=== PATIENT | female | born 1970 | race Caucasian/White ===

== ENCOUNTER 2019-09-19 13:59 | Inpatient (IN) ==
[~2019-09-19 13:59] MED LIST: RAPID SEQUENCE INDUCTION BAG ONE
[2019-09-19] MEDS ORDERED: ALBUT/IPRATROP 3MG/0.5MG NEB 3 ML VIAL NEB ONE (14:06)
--- NOTE | 2019-09-19 14:16 | XRay Report ---
XR chest 1V portable HISTORY: Respiratory failure. COMPARISON: Chest 09/12/2018. FINDINGS: The lungs are clear. Cardiac silhouette is normal in size. No pleural effusions. No pneumot horax. IMPRESSION: No acute process. ACT 112: Negative or not required by law. Electronically signed by: Cesar Downs M.D. 09/19/2019 2:15 PM
[2019-09-19 14:29] LABS: Hematocrit (blood only) 44.6 % (37-47); Hemoglobin 14.6 g/dL (12.0-16.0); Mean Corpuscular Hemoglobin 31.1 pg (25-34); Mean Corpuscular Hgb Conc 32.7 g/dL (32-36); Mean Corpuscular Volume 94.9 fL (80-100); Mean Platelet Volume 11.1 fL (7.4-10.4); Platelet Count 341 K/uL (130-400); RDW Coefficient of Variation 13.3 % (11.5-14.5); RDW Standard Deviation 46.1 fL (36.4-46.3)
[2019-09-19 14:46] LABS: Alanine Aminotransferase 24 U/L (12-78); Albumin Level 3.5 gm/dl (3.4-5.0); Aspartate Aminotransferase 18 U/L (15-37); BUN Creatinine Ratio 15.1 (10-20); Basophils # (auto) 0.06 K/uL (0-0.2); Basophils % (auto) 0.4 %; Blood Urea Nitrogen 13 mg/dl (7-18); Calcium 9.2 mg/dl (8.5-10.1); Carbon Dioxide 25 mmol/L (21-32); Chloride 108 mmol/L (98-107); Creatinine Clr Calc Pharmacy 81.9 ml/min; Eosinophils # (auto) 0.99 K/uL (0-0.5); Eosinophils % (auto) 6.6 %; Est GFR (Non-African American) 79.3; Glucose 221 mg/dl (70-99); Immature Granulocytes # (auto) 0.09 K/uL (0.00-0.02); Immature Granulocytes % (auto) 0.6 %; Lymphocytes # (auto) 7.29 K/uL (1.2-3.4); Lymphocytes % (auto) 48.9 %; Monocytes # (auto) 0.84 K/uL (0.11-0.59); Monocytes % (auto) 5.6 %; Neutrophils # (auto) 5.63 K/uL (1.4-6.5); Neutrophils % (auto) 37.9 %; Potassium 3.5 mmol/L (3.5-5.1); Sodium 139 mmol/L (136-145)
[2019-09-19 14:50] LABS: Albumin Globulin Ratio 0.8 (0.9-2); Alkaline Phosphatase 98 U/L (45-117); Bilirubin,Total 0.1 mg/dl (0.2-1); Globulin 4.4 gm/dl (2.5-4.0); Total Protein 7.9 gm/dl (6.4-8.2); Troponin I < 0.015 ng/ml (0-0.045)
[2019-09-19] MEDS ORDERED: OPTIRAY 320 125ml IV PRN (14:54)
[2019-09-19 14:55] LABS: Partial Thromboplastin Ratio 0.8; Partial Thromboplastin Time 22.8 Seconds (21.0-31.0)
[2019-09-19 14:56] LABS: Pregnancy Test, Serum Negative (Negative)
--- NOTE | 2019-09-19 15:05 | CT Scan Report ---
CT angio chest PE protocol CT DOSE: 590.46 mGy.cm HISTORY: Dyspnea PE sob TECHNIQUE: Multiaxial CT images of the chest were performed following the intravenous administration of contrast to evaluate the pulmonary arteries. Maximal intensity projection images were also obtaine d. A dose lowering technique was utilized adhering to the principles of ALARA. COMPARISON STUDY: None. FINDINGS: There is a normal caliber thoracic aorta with no evidence for dissection. There is no evide nce for pulmonary embolus. No pleural effusions. No pneumothorax. The liver and spleen are unremarkab le. No mediastinal or hilar lymphadenopathy. The central airways are patent. The lungs are clear. IMPRESSION: No evidence for pulmonary embolus. The lungs are clear. ACT 112: Negative or not required by law. The above report was generated using voice recognition software. It may contain grammatical, syntax or spelling errors. Electronically signed by: Camron Cohen M.D. 09/19/2019 3:04 PM
[2019-09-19 15:10] LABS: Influenza A virus by PCR Neg for Influ A (Neg); Influenza B virus by PCR Neg for Influ B (Neg)
[2019-09-19] MEDS ORDERED: GLUCAGON FOR INJ 1 MG VIAL SQ PRN (17:26)
[2019-09-19] MEDS ORDERED: DEXTROSE 50% 50 ML SYRINGE IV PRN (17:26)
[2019-09-19] MEDS ORDERED: GLUCOSE 40% GEL 15 GM TUBE PO PRN (17:26)
[2019-09-19] MEDS ORDERED: CARBOHYDRATES FOR HYPOGLYCEMIA PO PRN (17:26)
[2019-09-19] MEDS ORDERED: ALBUTEROL 0.5% NEB SOLN 2.5 MG/0.5 ML VIAL NEB PRN (17:26)
[2019-09-19] MEDS ORDERED: GLUCOSE 10 TABS/TUBE PO PRN (17:26)
[2019-09-19 17:34] LABS: Appearance Urine Clear (Clear); Bacteria Urine Automated 2+ (Negative); Bilirubin Urine Negative (Negative); Blood Urine 1+ (Negative); Color Urine Yellow; Epithelial Cell Urine Auto 20-30 /lpf (0-5); Glucose Urine UA Negative (Negative); Ketones Urine Negative (Negative); Leukocyte Esterase Urine Negative (Negative); Nitrite Urine Negative (Negative); Protein Urine Negative (Negative); Specific Gravity Urine > 1.045 (1.000-1.030); Urobilinogen Urine Negative (Negative)
[2019-09-19 17:52] LABS: RBC Urine Automated 0-4 /hpf (0-4)
[2019-09-19] MEDS ORDERED: INFLUENZA ADMINISTRATION CHARGE ONE (17:57)
[2019-09-19] MEDS ORDERED: INFLUENZA VIRUS QUAD VACCINE 0.5 ML SYR IM ONE (17:57)
--- NOTE | 2019-09-19 18:20 | Electrocardiogram Report ---
Test Reason : Blood Pressure : / mmHG Vent. Rate : 125 BPM Atrial Rate : 125 BPM P-R Int : 166 ms QRS Dur : 074 ms QT Int : 296 ms P-R-T Axes : 071 046 060 degrees QTc Int : 427 ms Poor data quality, interpretation may be adversely affected Sinus tachycardia Low voltage QRS Abnormal ECG No previous ECGs available Confirmed by Jeff Márquez ([id number]) on 09/19/2019 6:20:36 PM Referred By: REFERRED SELF Confirmed By:Dirk Márquez
--- NOTE | 2019-09-19 19:04 | Emergency Department Note ---
Entered by Haydee Salmon acting as a scribe for History of Present Illness General Chief complaint: Respiratory Arrest Time Seen by Provider: 09/19/19 14:04 Source: patient and EMS History of Present Illness Onset (ago): minute(s) (just prior to arrival) Location: head (general) Pain Consistency: + other (episode) Quality: + other (respiratory arrest) Associated symptoms: + cough and + shortness of breath Treatments prior to arrival: other (nebulizer, NAG, Solu-Medrol) The patient is a 49 year old female who presents to the Emergency Room with complaints of an episode of respiratory arrest that occurred just prior to arrival. EMS states the patient was working at a [employer] when she began severely coughing and became unable to breathe. EMS reports the patient became unresponsive and turned perez. EMS notes the patient was given 3 nebulizer treatments, 2g of NAG, and Solu-Medrol. They note the patient has been sick for the past 3 months with a respiratory illness. They state the patient smokes 2-3 cigarettes per day. They note she is allergic to penicillin. The patient reports she has had worsening shortness of breath for some time. Home Medications Home Medications Medication Instructions Recorded Confirmed Type ascorbic acid (vitamin C) [Vitamin 500 mg PO QAM 09/12/18 09/19/19 History C] calcium carbonate [Calcium 600] 600 mg PO QAM 09/12/18 09/19/19 History cholecalciferol (vitamin D3) 1,000 unit PO QAM 09/12/18 09/19/19 History [Vitamin D3] ibuprofen 800 mg PO QID PRN 09/12/18 09/19/19 History Allergies Allergy/AdvReac Type Severity Reaction Status Date / Time Penicillins Allergy . Verified 09/19/19 15:16 Past Med/Surg History Medical History Urinary tract infection (Acute) Surgical History H/O: hysterectomy Family History Other No pertinent family history Social History Preferred Language: Ivorian Communication Ability: Effective Visual Impairment: No Limitations Hearing Ability: Normal Bait Packer Required: No Beliefs That Will Affect Care: None marital status: Current Living Situation: Spouse and Family current occupational status: employed Other Information That Helps Us Care for You: No Feels Safe at Home: Yes Safety Concerns: Feels Safe At This Time Smoking Status: Former smoker Tobacco Type: cigarettes ; Do You Dip or Chew Tobacco: No ; Second Hand Exposure: No ; Tobacco Cessation Education Requested by Patient: No Hx Alcohol Use: Yes Alcohol type: other Hx Substance Use: No Review of Systems See HPI for pertinent positives & negatives. and A total of 10 systems reviewed and were otherwise negative Physical Exam Vital Signs Vital Signs - 24 hr 09/19/19 14:05 09/19/19 14:09 09/19/19 14:16 Pulse Rate 128 H 127 H 121 H Pulse Rate from SpO2 Sensor 121 H Respiratory Rate 22 39 H 32 H Respiratory Effort / Characteristics Spontaneous Labored Short of Breath Accessory Muscle Use Labored Respiratory Depth Normal Respiratory Pattern Tachypnea Blood Pressure 144/96 H 126/84 Blood Pressure Mean 112 93 Blood Pressure Position Sitting Pulse Oximetry 100 99 100 Oxygen Delivery Method BiPAP Non-rebreather BiPAP Oxygen Flow Rate 15 Fraction of Inspired Oxygen 50 50 Sepsis Recent Fever Within 48 Hours No Sepsis New/Unexplained Change in Mental Status No Sepsis Action Taken by Nursing No Action Required 09/19/19 14:18 09/19/19 14:19 09/19/19 14:29 Pulse Rate 120 H Pulse Rate from SpO2 Sensor 121 H Respiratory Rate 28 H Respiratory Effort / Characteristics Respiratory Depth Respiratory Pattern Blood Pressure 121/81 Blood Pressure Mean 90 Blood Pressure Position Pulse Oximetry 100 100 Oxygen Delivery Method BiPAP BiPAP BiPAP Oxygen Flow Rate Fraction of Inspired Oxygen 50 50 Sepsis Recent Fever Within 48 Hours Sepsis New/Unexplained Change in Mental Status Sepsis Action Taken by Nursing 09/19/19 14:30 09/19/19 14:45 09/19/19 15:03 Pulse Rate 120 H 120 H 127 H Pulse Rate from SpO2 Sensor 120 H 120 H 127 H Respiratory Rate 28 H 28 H 28 H Respiratory Effort / Characteristics Respiratory Depth Respiratory Pattern Blood Pressure 117/85 102/74 106/64 Blood Pressure Mean 95 80 70 Blood Pressure Position Pulse Oximetry 100 100 100 Oxygen Delivery Method BiPAP BiPAP Oxygen Flow Rate Fraction of Inspired Oxygen Sepsis Recent Fever Within 48 Hours Sepsis New/Unexplained Change in Mental Status Sepsis Action Taken by Nursing 09/19/19 15:15 09/19/19 15:20 09/19/19 15:21 Pulse Rate 126 H 118 H 118 H Pulse Rate from SpO2 Sensor 126 H 118 H 118 H Respiratory Rate 28 H Respiratory Effort / Characteristics Respiratory Depth Respiratory Pattern Blood Pressure 102/81 Blood Pressure Mean 94 Blood Pressure Position Pulse Oximetry 100 100 100 Oxygen Delivery Method Oxygen Flow Rate Fraction of Inspired Oxygen Sepsis Recent Fever Within 48 Hours Sepsis New/Unexplained Change in Mental Status Sepsis Action Taken by Nursing 09/19/19 15:30 09/19/19 15:45 09/19/19 16:00 Pulse Rate 122 H 117 H 121 H Pulse Rate from SpO2 Sensor 122 H 117 H 122 H Respiratory Rate 29 H Respiratory Effort / Characteristics Respiratory Depth Respiratory Pattern Blood Pressure 103/74 101/78 107/76 Blood Pressure Mean 79 84 82 Blood Pressure Position Pulse Oximetry 100 100 100 Oxygen Delivery Method BiPAP Oxygen Flow Rate Fraction of Inspired Oxygen Sepsis Recent Fever Within 48 Hours Sepsis New/Unexplained Change in Mental Status Sepsis Action Taken by Nursing 09/19/19 16:10 Pulse Rate 117 H Pulse Rate from SpO2 Sensor 116 H Respiratory Rate Respiratory Effort / Characteristics Respiratory Depth Respiratory Pattern Blood Pressure Blood Pressure Mean Blood Pressure Position Pulse Oximetry 100 Oxygen Delivery Method Oxygen Flow Rate Fraction of Inspired Oxygen Sepsis Recent Fever Within 48 Hours Sepsis New/Unexplained Change in Mental Status Sepsis Action Taken by Nursing GENERAL: Awake, alert, fatigued-appearing, in respiratory distress HENT: Normocephalic, atraumatic. EYES: Normal conjunctiva. Sclera non-icteric. NECK: Supple. No nuchal rigidity. RESPIRATORY: Coarse breath sounds with wheezing throughout. Increased work of breathing. Tachypneic. CARDIAC: Tachycardic rate. Normal rhythm. Extremities warm and well perfused. GI: Soft, non-distended. No tenderness to palpation MUSCULOSKELETAL: Atraumatic. Chest examination reveals no tenderness. LOWER EXTREMITIES: Calves are equal size bilaterally and non-tender. Trace pedal edema. NEURO: No sensory or motor deficits noted. No facial droop. SKIN: Warm and dry. No jaundice noted. Course Course 1400: Past medical records reviewed. The patient was evaluated in room A01. A complete history and physical exam was performed. 1530: Upon reevaluation, I discussed findings and results with the patient and her family. They verbalized agreement of the treatment plan. I spoke with Dr. Moreno of the [facility] Hospitalist Service. The patient will be evaluated for further management and care. Administered Medications Ioversol (Optiray 320 125ml) 118 ml IV ONCE PRN PRN Reason: Interaction Checking Stop: 09/23/19 14:53 Last Admin: 09/19/19 14:54 Dose: 118 ml Documented by: [id number] Discontinued Medications Albuterol (Duoneb) 12 ml NEB ONE ONE Stop: 09/19/19 14:07 Last Admin: 09/19/19 15:20 Dose: 12 ml Documented by: [id number] Miscellaneous () Confirm Administered Dose 1 ea .ROUTE .STK-MED ONE Stop: 09/19/19 13:57 Last Admin: 09/19/19 15:20 Dose: Not Given Documented by: [id number] Critical Care Time Critical Care Time: Yes Total Critical Care Time: 55 I have personally spent 55 minutes of critical care time in the direct management of this patient. This includes bedside care, interpretation of diagnostic studies, and testing, discussion with consultants, patient, and family members, and other required patient management activities. This 55 minutes is in excess of all separately billable procedures. Medical Decision Making Differential Diagnosis Differential diagnoses includes but is not limited to pneumonia, bronchitis, COPD/Asthma exacerbation, pneumothorax, pulmonary embolism, congestive heart failure, acute coronary syndrome Medical Records Attestation: I reviewed the patient's medical records. Home Medications Current Medication List: was personally reviewed by me Laboratory Data Attestation: I reviewed the patient's lab results. Result diagrams: 09/19/19 13:50 09/19/19 13:50 Lab Results 09/19/19 09/19/19 09/19/19 Range/Units 13:50 13:50 13:50 WBC 14.90 H (4.8-10.8) K/uL RBC 4.70 (4.2-5.4) M/uL Hgb 14.6 (12.0-16.0) g/dL Hct 44.6 (37-47) % MCV 94.9 (80-100) fL MCH 31.1 (25-34) pg MCHC 32.7 (32-36) g/dL RDW Std Deviation 46.1 (36.4-46.3) fL RDW Coeff of Niya 13.3 (11.5-14.5) % Plt Count 341 (130-400) K/uL MPV 11.1 H (7.4-10.4) fL Immature Gran % (Auto) 0.6 % Neut % (Auto) 37.9 % Lymph % (Auto) 48.9 % [place] % (Auto) 5.6 % Eos % (Auto) 6.6 % Baso % (Auto) 0.4 % Immature Gran # (Auto) 0.09 H (0.00-0.02) K/uL Neut # (Auto) 5.63 (1.4-6.5) K/uL Lymph # (Auto) 7.29 H (1.2-3.4) K/uL [place] # (Auto) 0.84 H (0.11-0.59) K/uL Eos # (Auto) 0.99 H (0-0.5) K/uL Baso # (Auto) 0.06 (0-0.2) K/uL PT Cancelled INR Cancelled APTT Cancelled PTT Ratio Cancelled Sodium 139 (136-145) mmol/L Potassium 3.5 (3.5-5.1) mmol/L Chloride 108 H (98-107) mmol/L Carbon Dioxide 25 (21-32) mmol/L Anion Gap 6.0 (3-11) BUN 13 (7-18) mg/dl Creatinine 0.85 (0.6-1.2) mg/dl POC Creatinine (0.6-1.3) mg/dl Est Cr Clr Drug Dosing 81.9 ml/min Est GFR ( Amer) 92.0 Est GFR (Non-Af Amer) 79.3 BUN/Creatinine Ratio 15.1 (10-20) Glucose 221 H (70-99) mg/dl Lactate (0.4-2.0) mmol/L Calcium 9.2 (8.5-10.1) mg/dl Phosphorus (2.5-4.9) mg/dl Magnesium 2.0 (1.8-2.4) mg/dl Total Bilirubin 0.1 L (0.2-1) mg/dl AST 18 (15-37) U/L ALT 24 (12-78) U/L Alkaline Phosphatase 98 (45-117) U/L Troponin I < 0.015 (0-0.045) ng/ml Total Protein 7.9 (6.4-8.2) gm/dl Albumin 3.5 (3.4-5.0) gm/dl Globulin 4.4 H (2.5-4.0) gm/dl Albumin/Globulin Ratio 0.8 L (0.9-2) Procalcitonin (0-0.5) ng/ml HCG, Qual (Negative) Influenza Type A (PCR) (Neg) Influenza Type B (PCR) (Neg) 09/19/19 09/19/19 09/19/19 Range/Units 13:50 13:50 13:50 WBC (4.8-10.8) K/uL RBC (4.2-5.4) M/uL Hgb (12.0-16.0) g/dL Hct (37-47) % MCV (80-100) fL MCH (25-34) pg MCHC (32-36) g/dL RDW Std Deviation (36.4-46.3) fL RDW Coeff of Niya (11.5-14.5) % Plt Count (130-400) K/uL MPV (7.4-10.4) fL Immature Gran % (Auto) % Neut % (Auto) % Lymph % (Auto) % [place] % (Auto) % Eos % (Auto) % Baso % (Auto) % Immature Gran # (Auto) (0.00-0.02) K/uL Neut # (Auto) (1.4-6.5) K/uL Lymph # (Auto) (1.2-3.4) K/uL [place] # (Auto) (0.11-0.59) K/uL Eos # (Auto) (0-0.5) K/uL Baso # (Auto) (0-0.2) K/uL PT INR APTT PTT Ratio Sodium (136-145) mmol/L Potassium (3.5-5.1) mmol/L Chloride (98-107) mmol/L Carbon Dioxide (21-32) mmol/L Anion Gap (3-11) BUN (7-18) mg/dl Creatinine (0.6-1.2) mg/dl POC Creatinine (0.6-1.3) mg/dl Est Cr Clr Drug Dosing ml/min Est GFR ( Amer) Est GFR (Non-Af Amer) BUN/Creatinine Ratio (10-20) Glucose (70-99) mg/dl Lactate (0.4-2.0) mmol/L Calcium (8.5-10.1) mg/dl Phosphorus 6.7 H (2.5-4.9) mg/dl Magnesium (1.8-2.4) mg/dl Total Bilirubin (0.2-1) mg/dl AST (15-37) U/L ALT (12-78) U/L Alkaline Phosphatase (45-117) U/L Troponin I (0-0.045) ng/ml Total Protein (6.4-8.2) gm/dl Albumin (3.4-5.0) gm/dl Globulin (2.5-4.0) gm/dl Albumin/Globulin Ratio (0.9-2) Procalcitonin < 0.05 (0-0.5) ng/ml HCG, Qual Negative (Negative) Influenza Type A (PCR) (Neg) Influenza Type B (PCR) (Neg) 09/19/19 09/19/19 09/19/19 Range/Units 14:21 14:30 14:35 WBC (4.8-10.8) K/uL RBC (4.2-5.4) M/uL Hgb (12.0-16.0) g/dL Hct (37-47) % MCV (80-100) fL MCH (25-34) pg MCHC (32-36) g/dL RDW Std Deviation (36.4-46.3) fL RDW Coeff of Niya (11.5-14.5) % Plt Count (130-400) K/uL MPV (7.4-10.4) fL Immature Gran % (Auto) % Neut % (Auto) % Lymph % (Auto) % [place] % (Auto) % Eos % (Auto) % Baso % (Auto) % Immature Gran # (Auto) (0.00-0.02) K/uL Neut # (Auto) (1.4-6.5) K/uL Lymph # (Auto) (1.2-3.4) K/uL [place] # (Auto) (0.11-0.59) K/uL Eos # (Auto) (0-0.5) K/uL Baso # (Auto) (0-0.2) K/uL PT 10.0 INR 1.0 APTT 22.8 PTT Ratio 0.8 Sodium (136-145) mmol/L Potassium (3.5-5.1) mmol/L Chloride (98-107) mmol/L Carbon Dioxide (21-32) mmol/L Anion Gap (3-11) BUN (7-18) mg/dl Creatinine (0.6-1.2) mg/dl POC Creatinine (0.6-1.3) mg/dl Est Cr Clr Drug Dosing ml/min Est GFR ( Amer) Est GFR (Non-Af Amer) BUN/Creatinine Ratio (10-20) Glucose (70-99) mg/dl Lactate 1.6 (0.4-2.0) mmol/L Calcium (8.5-10.1) mg/dl Phosphorus (2.5-4.9) mg/dl Magnesium (1.8-2.4) mg/dl Total Bilirubin (0.2-1) mg/dl AST (15-37) U/L ALT (12-78) U/L Alkaline Phosphatase (45-117) U/L Troponin I (0-0.045) ng/ml Total Protein (6.4-8.2) gm/dl Albumin (3.4-5.0) gm/dl Globulin (2.5-4.0) gm/dl Albumin/Globulin Ratio (0.9-2) Procalcitonin (0-0.5) ng/ml HCG, Qual (Negative) Influenza Type A (PCR) Neg for Influ A (Neg) Influenza Type B (PCR) Neg for Influ B (Neg) 09/19/19 Range/Units 14:40 WBC (4.8-10.8) K/uL RBC (4.2-5.4) M/uL Hgb (12.0-16.0) g/dL Hct (37-47) % MCV (80-100) fL MCH (25-34) pg MCHC (32-36) g/dL RDW Std Deviation (36.4-46.3) fL RDW Coeff of Niya (11.5-14.5) % Plt Count (130-400) K/uL MPV (7.4-10.4) fL Immature Gran % (Auto) % Neut % (Auto) % Lymph % (Auto) % [place] % (Auto) % Eos % (Auto) % Baso % (Auto) % Immature Gran # (Auto) (0.00-0.02) K/uL Neut # (Auto) (1.4-6.5) K/uL Lymph # (Auto) (1.2-3.4) K/uL [place] # (Auto) (0.11-0.59) K/uL Eos # (Auto) (0-0.5) K/uL Baso # (Auto) (0-0.2) K/uL PT INR APTT PTT Ratio Sodium (136-145) mmol/L Potassium (3.5-5.1) mmol/L Chloride (98-107) mmol/L Carbon Dioxide (21-32) mmol/L Anion Gap (3-11) BUN (7-18) mg/dl Creatinine (0.6-1.2) mg/dl POC Creatinine 0.7 (0.6-1.3) mg/dl Est Cr Clr Drug Dosing ml/min Est GFR ( Amer) Est GFR (Non-Af Amer) BUN/Creatinine Ratio (10-20) Glucose (70-99) mg/dl Lactate (0.4-2.0) mmol/L Calcium (8.5-10.1) mg/dl Phosphorus (2.5-4.9) mg/dl Magnesium (1.8-2.4) mg/dl Total Bilirubin (0.2-1) mg/dl AST (15-37) U/L ALT (12-78) U/L Alkaline Phosphatase (45-117) U/L Troponin I (0-0.045) ng/ml Total Protein (6.4-8.2) gm/dl Albumin (3.4-5.0) gm/dl Globulin (2.5-4.0) gm/dl Albumin/Globulin Ratio (0.9-2) Procalcitonin (0-0.5) ng/ml HCG, Qual (Negative) Influenza Type A (PCR) (Neg) Influenza Type B (PCR) (Neg) Imaging Data Radiologist's Impression: Radiology results as stated below per my review and the radiologist's interpretation: XR chest 1V portable HISTORY: Respiratory failure. COMPARISON: Chest 09/12/2018. FINDINGS: The lungs are clear. Cardiac silhouette is normal in size. No pleural effusions. No pneumothorax. IMPRESSION: No acute process. ACT 112: Negative or not required by law. Electronically signed by: Cesar Downs M.D. 09/19/2019 2:[address] angio chest PE protocol CT DOSE: 590.46 mGy.cm HISTORY: Dyspnea PE sob TECHNIQUE: Multiaxial CT images of the chest were performed following the intravenous administration of contrast to evaluate the pulmonary arteries. Maximal intensity projection images were also obtained. A dose lowering technique was utilized adhering to the principles of ALARA. COMPARISON STUDY: None. FINDINGS: There is a normal caliber thoracic aorta with no evidence for dissection. There is no evidence for pulmonary embolus. No pleural effusions. No pneumothorax. The liver and spleen are unremarkable. No mediastinal or hilar lymphadenopathy. The central airways are patent. The lungs are clear. IMPRESSION: No evidence for pulmonary embolus. The lungs are clear. ACT 112: Negative or not required by law. The above report was generated using voice recognition software. It may contain grammatical, syntax or spelling errors. Electronically signed by: Camron Cohen M.D. 09/19/2019 3:04 PM ECG Data Attestation: I personally reviewed and interpreted this ECG as follows: Indication: + SOB/dyspnea Rate (beats per minute): 125 Rhythm: + sinus tachycardia ECG Intervals/blocks: + Normal QT-c ECG ST segments: no ST elevation ECG Findings: no PVCs Blood Pressure Blood Pressure Findings: Elevated blood pressure Blood Pressure Disposition: further management by hospitalist DEVON Rockwell Patient is a 49-year-old female presenting as severe respiratory distress from her workplace today via EMS. Patient was cyanotic and somewhat combative and unresponsive at different times for EMS. Was in a coughing fit and this all began very suddenly. Has had a bit of a cough for the past several weeks. No recent travel. Patient received Solu-Medrol, magnesium, multiple DuoNeb's prior to arrival. Placed on BiPAP here with improvement of mentation. Hypercarbic. Diffuse expiratory wheezing. ?reactive airway disease. She denies noxious exposure prior to event today. Tenuous initially but was able to stabilize on BiPAP and avoid intubation. Chest x-ray without evidence of pneumothorax. No PE. No pneumonia. Basic labs are completed with likely reactive leukocytosis. No evidence of significant cardiac abnormality. Flu testing was negative. Patient require admission for further care given her severe respiratory status. Will hold off antibiotics at this time. Hospitalist contacted. ABG obtained later shows improvement of hypercarbia. Impression & Plan Acute respiratory failure with hypoxia and hypercarbia, RAD (reactive airway disease) Discharge Plan Visit Data *Final* Discharge Date/Time: 09/19/19 16:33 Chief Complaint: Respiratory Arrest ED Provider: Carl Shah Discharge Problem: Acute respiratory failure with hypoxia and hypercarbia, RAD (reactive airway disease) Patient Disposition: Admitted As Inpatient Discharge Instructions Interventions: ED Discharge Assessment Last Done: 09/19/19 16:33 Discharge Problem: RAD (reactive airway disease) Qualifiers: Asthma severity: unspecified severity Asthma persistence: unspecified Asthma complication type: with acute exacerbation Qualified Code(s): J45.901 - Unspecified asthma with (acute) exacerbation The scribe's documentation has been prepared under my direction and personally reviewed by me in its entirety. I confirm that the note above accurately reflects all work, treatment, procedures, and medical decision making performed by me.
[2019-09-19] MEDS: ALBUT/IPRATROP 3MG/0.5MG NEB 3 ML VIAL NEB SCH ×2 (19:13→23:25)
[2019-09-19] MEDS: ACETAMINOPHEN 325 MG TAB PO PRN (19:38)
--- NOTE | 2019-09-19 19:51 | History & Physical Report ---
Date of Service September 19, 2019 Assessment & Plan (1) Acute respiratory failure with hypoxia and hypercarbia: 49-year-old female with no previously diagnosed lung disease, active smoker presenting with acute hypoxic/hypercarbic respiratory failure requiring rescue BiPAP. Most likely secondary to reactive airway disease/COPD, no formal diagnosis of this at this time. Admit to PCU, continuous cardiac monitoring Continue BiPAP at current settings, wean as tolerated DuoNebs every 4 hours Albuterol every 2 hours as needed Prednisone 40 mg p.o. daily Patient will need outpatient PFTs Smoking cessation counseling Present on Admission?: Yes (2) Hyperglycemia: Blood sugar on arrival = 221. Patient with no formal diagnosis of diabetes We will continue to monitor blood sugar Check hemoglobin A1c with next blood draw (3) Tachycardia: Patient with persistent sinus tachycardia. Most likely secondary to hypoxia and medication effects from steroids and nebs. CTA with no evidence of PE. Patient denies pain. H/H within normal limits. No evidence of infection/sepsis Continue to monitor FENHep-Lock, monitor electrolytes and replete as needed, regular diet as tolerated Prophylaxispatient is low risk for DVT. Encourage ambulation Codefull per discussion with patient Dispositionadmit to PCU History of Present Illness Chief Complaint: Hypoxic/hypercarbic respiratory failure Primary Care Provider: NO PCP Nabila Lozano is a 49-year-old female with no significant past medical history, no previously diagnosed lung disease presenting with acute hypoxic/hypercarbic respiratory failure. She reports being ill for the last couple of months with cough productive for phlegm, shortness of breath and occasional chest tightness. Patient is employed at [employer]. 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 She reportedly turned perez and became unresponsive at work. Saturations 57%, heart rate = 124. She was placed on 4 L by O2 concentrator by colleagues and 911 was called. Patient was administered 3 nebulized treatments, 2 g of magnesium and Solu-Medrol in the field. On arrival to the ER she was tachycardic at 128 bpm, tachypneic at 39 breaths/min, saturating 99% on 15 L nonrebreather. She was placed on BiPAP for increased work of breathing, settings 15/5, 50%. Saturations remained stable. ER course: Albuterol, BiPAP Allergies Allergy/AdvReac Type Severity Reaction Status Date / Time Penicillins Allergy . Verified 09/19/19 15:16 Home Medications Home Medications Medication Instructions Recorded Confirmed Type ascorbic acid (vitamin C) [Vitamin 500 mg PO QAM 09/12/18 09/19/19 History C] calcium carbonate [Calcium 600] 600 mg PO QAM 09/12/18 09/19/19 History cholecalciferol (vitamin D3) 1,000 unit PO QAM 09/12/18 09/19/19 History [Vitamin D3] ibuprofen 800 mg PO QID PRN 09/12/18 09/19/19 History Past Med/Surg History Medical History Urinary tract infection (Acute) Surgical History H/O: hysterectomy Family History Other No pertinent family history Social History Preferred Language: Lithuanian Communication Ability: Effective Visual Impairment: No Limitations Hearing Ability: Normal Instructor Warper Required: No Beliefs That Will Affect Care: None marital status: Current Living Situation: Spouse and Family current occupational status: employed Other Information That Helps Us Care for You: No Feels Safe at Home: Yes Safety Concerns: Feels Safe At This Time Smoking Status: Former smoker Tobacco Type: cigarettes ; Do You Dip or Chew Tobacco: No ; Second Hand Exposure: No ; Tobacco Cessation Education Requested by Patient: No Hx Alcohol Use: Yes Alcohol type: other Hx Substance Use: No Review of Systems Review of Systems: All systems reviewed & are unremarkable except as noted in HPI & below + Dyspnea exertion/wheezing/dizziness/shortness of breath/palpitations Denies fever/chills/sweats/malaise Denies edema/orthopnea/weight gain Denies sore throat/runny nose Physical Exam Physical Exam: General: patient resting comfortably, NAD, non-toxic in appearance, AA&O x 4, BiPAP in place Skin: warm, dry, intact, no rashes or lesions HEENT: NC/AT, PERRL, EOMI, anicteric sclera, conjunctiva without injection, external ear normal to inspection and nontender, nares patent, moist mucus membranes, dentition intact, no oropharyngeal lesions, neck supple, trachea midline, no LAD, no thyromegaly, no JVD Heart: +S1/S2, regular, tachycardic, no m/r/g Lungs: Diminished breath sounds bilaterally, no rales/rhonchi, mild diffuse end expiratory wheezing Abd: +BS, soft, NT/ND, no masses/organomegaly/ascites Ext: warm, 2+ pulses in UE/LE bilaterally, no clubbing/cyanosis or edema Neuro: nonfocal, patient AA&O x 4, speech intact, no facial droop, moving all extremities on command with equal strength 5/5 Results & Data Vital Signs (Past 12 Hours) Vital Signs Temp Pulse Pulse Resp BP BP Pulse Ox 09/19/19 19:13 112 H 18 95 09/19/19 17:32 36.5 C 120 H 28 H 114/80 94 09/19/19 16:20 116 H 100 09/19/19 16:15 113 H 113/94 100 09/19/19 16:10 117 H 100 09/19/19 16:00 121 H 107/76 100 09/19/19 15:45 117 H 29 H 101/78 100 09/19/19 15:30 122 H 103/74 100 09/19/19 15:21 118 H 100 09/19/19 15:20 118 H 28 H 102/81 100 09/19/19 15:15 126 H 100 09/19/19 15:03 127 H 28 H 106/64 100 09/19/19 14:45 120 H 28 H 102/74 100 09/19/19 14:30 120 H 28 H 117/85 100 09/19/19 14:29 120 H 28 H 121/81 100 09/19/19 14:19 100 09/19/19 14:16 121 H 32 H 126/84 100 09/19/19 14:09 127 H 39 H 144/96 H 99 09/19/19 14:05 128 H 22 100 Laboratory Results Lab Results 09/19/19 09/19/19 09/19/19 Range/Units 13:50 13:50 13:50 WBC 14.90 H (4.8-10.8) K/uL RBC 4.70 (4.2-5.4) M/uL Hgb 14.6 (12.0-16.0) g/dL Hct 44.6 (37-47) % MCV 94.9 (80-100) fL MCH 31.1 (25-34) pg MCHC 32.7 (32-36) g/dL RDW Std Deviation 46.1 (36.4-46.3) fL RDW Coeff of Niya 13.3 (11.5-14.5) % Plt Count 341 (130-400) K/uL MPV 11.1 H (7.4-10.4) fL Immature Gran % (Auto) 0.6 % Neut % (Auto) 37.9 % Lymph % (Auto) 48.9 % Phelps % (Auto) 5.6 % Eos % (Auto) 6.6 % Baso % (Auto) 0.4 % Immature Gran # (Auto) 0.09 H (0.00-0.02) K/uL Neut # (Auto) 5.63 (1.4-6.5) K/uL Lymph # (Auto) 7.29 H (1.2-3.4) K/uL Phelps # (Auto) 0.84 H (0.11-0.59) K/uL Eos # (Auto) 0.99 H (0-0.5) K/uL Baso # (Auto) 0.06 (0-0.2) K/uL PT Cancelled INR Cancelled APTT Cancelled PTT Ratio Cancelled Sodium 139 (136-145) mmol/L Potassium 3.5 (3.5-5.1) mmol/L Chloride 108 H (98-107) mmol/L Carbon Dioxide 25 (21-32) mmol/L Anion Gap 6.0 (3-11) BUN 13 (7-18) mg/dl Creatinine 0.85 (0.6-1.2) mg/dl POC Creatinine (0.6-1.3) mg/dl Est Cr Clr Drug Dosing 81.9 ml/min Est GFR ( Amer) 92.0 Est GFR (Non-Af Amer) 79.3 BUN/Creatinine Ratio 15.1 (10-20) Glucose 221 H (70-99) mg/dl Lactate (0.4-2.0) mmol/L Calcium 9.2 (8.5-10.1) mg/dl Phosphorus (2.5-4.9) mg/dl Magnesium 2.0 (1.8-2.4) mg/dl Total Bilirubin 0.1 L (0.2-1) mg/dl AST 18 (15-37) U/L ALT 24 (12-78) U/L Alkaline Phosphatase 98 (45-117) U/L Troponin I < 0.015 (0-0.045) ng/ml Total Protein 7.9 (6.4-8.2) gm/dl Albumin 3.5 (3.4-5.0) gm/dl Globulin 4.4 H (2.5-4.0) gm/dl Albumin/Globulin Ratio 0.8 L (0.9-2) Procalcitonin (0-0.5) ng/ml HCG, Qual (Negative) Urine Color Urine Appearance (Clear) Urine pH (4.5-7.5) Ur Specific [place] (1.000-1.030) Urine Protein (Negative) Urine Glucose (UA) (Negative) Urine Ketones (Negative) Urine Blood (Negative) Urine Nitrite (Negative) Urine Bilirubin (Negative) Urine Urobilinogen (Negative) Ur Leukocyte Esterase (Negative) Urine WBC (Auto) (0-5) /hpf Urine RBC (Auto) (0-4) /hpf U Hyaline Cast (Auto) (0-5) /lpf U Epithel Cells (Auto) (0-5) /lpf Urine Bacteria (Auto) (Negative) Influenza Type A (PCR) (Neg) Influenza Type B (PCR) (Neg) 09/19/19 09/19/19 09/19/19 Range/Units 13:50 13:50 13:50 WBC (4.8-10.8) K/uL RBC (4.2-5.4) M/uL Hgb (12.0-16.0) g/dL Hct (37-47) % MCV (80-100) fL MCH (25-34) pg MCHC (32-36) g/dL RDW Std Deviation (36.4-46.3) fL RDW Coeff of Niya (11.5-14.5) % Plt Count (130-400) K/uL MPV (7.4-10.4) fL Immature Gran % (Auto) % Neut % (Auto) % Lymph % (Auto) % Phelps % (Auto) % Eos % (Auto) % Baso % (Auto) % Immature Gran # (Auto) (0.00-0.02) K/uL Neut # (Auto) (1.4-6.5) K/uL Lymph # (Auto) (1.2-3.4) K/uL Phelps # (Auto) (0.11-0.59) K/uL Eos # (Auto) (0-0.5) K/uL Baso # (Auto) (0-0.2) K/uL PT INR APTT PTT Ratio Sodium (136-145) mmol/L Potassium (3.5-5.1) mmol/L Chloride (98-107) mmol/L Carbon Dioxide (21-32) mmol/L Anion Gap (3-11) BUN (7-18) mg/dl Creatinine (0.6-1.2) mg/dl POC Creatinine (0.6-1.3) mg/dl Est Cr Clr Drug Dosing ml/min Est GFR ( Amer) Est GFR (Non-Af Amer) BUN/Creatinine Ratio (10-20) Glucose (70-99) mg/dl Lactate (0.4-2.0) mmol/L Calcium (8.5-10.1) mg/dl Phosphorus 6.7 H (2.5-4.9) mg/dl Magnesium (1.8-2.4) mg/dl Total Bilirubin (0.2-1) mg/dl AST (15-37) U/L ALT (12-78) U/L Alkaline Phosphatase (45-117) U/L Troponin I (0-0.045) ng/ml Total Protein (6.4-8.2) gm/dl Albumin (3.4-5.0) gm/dl Globulin (2.5-4.0) gm/dl Albumin/Globulin Ratio (0.9-2) Procalcitonin < 0.05 (0-0.5) ng/ml HCG, Qual Negative (Negative) Urine Color Urine Appearance (Clear) Urine pH (4.5-7.5) Ur Specific [place] (1.000-1.030) Urine Protein (Negative) Urine Glucose (UA) (Negative) Urine Ketones (Negative) Urine Blood (Negative) Urine Nitrite (Negative) Urine Bilirubin (Negative) Urine Urobilinogen (Negative) Ur Leukocyte Esterase (Negative) Urine WBC (Auto) (0-5) /hpf Urine RBC (Auto) (0-4) /hpf U Hyaline Cast (Auto) (0-5) /lpf U Epithel Cells (Auto) (0-5) /lpf Urine Bacteria (Auto) (Negative) Influenza Type A (PCR) (Neg) Influenza Type B (PCR) (Neg) 09/19/19 09/19/19 09/19/19 Range/Units 14:21 14:30 14:35 WBC (4.8-10.8) K/uL RBC (4.2-5.4) M/uL Hgb (12.0-16.0) g/dL Hct (37-47) % MCV (80-100) fL MCH (25-34) pg MCHC (32-36) g/dL RDW Std Deviation (36.4-46.3) fL RDW Coeff of Niya (11.5-14.5) % Plt Count (130-400) K/uL MPV (7.4-10.4) fL Immature Gran % (Auto) % Neut % (Auto) % Lymph % (Auto) % Phelps % (Auto) % Eos % (Auto) % Baso % (Auto) % Immature Gran # (Auto) (0.00-0.02) K/uL Neut # (Auto) (1.4-6.5) K/uL Lymph # (Auto) (1.2-3.4) K/uL Phelps # (Auto) (0.11-0.59) K/uL Eos # (Auto) (0-0.5) K/uL Baso # (Auto) (0-0.2) K/uL PT 10.0 INR 1.0 APTT 22.8 PTT Ratio 0.8 Sodium (136-145) mmol/L Potassium (3.5-5.1) mmol/L Chloride (98-107) mmol/L Carbon Dioxide (21-32) mmol/L Anion Gap (3-11) BUN (7-18) mg/dl Creatinine (0.6-1.2) mg/dl POC Creatinine (0.6-1.3) mg/dl Est Cr Clr Drug Dosing ml/min Est GFR ( Amer) Est GFR (Non-Af Amer) BUN/Creatinine Ratio (10-20) Glucose (70-99) mg/dl Lactate 1.6 (0.4-2.0) mmol/L Calcium (8.5-10.1) mg/dl Phosphorus (2.5-4.9) mg/dl Magnesium (1.8-2.4) mg/dl Total Bilirubin (0.2-1) mg/dl AST (15-37) U/L ALT (12-78) U/L Alkaline Phosphatase (45-117) U/L Troponin I (0-0.045) ng/ml Total Protein (6.4-8.2) gm/dl Albumin (3.4-5.0) gm/dl Globulin (2.5-4.0) gm/dl Albumin/Globulin Ratio (0.9-2) Procalcitonin (0-0.5) ng/ml HCG, Qual (Negative) Urine Color Urine Appearance (Clear) Urine pH (4.5-7.5) Ur Specific [place] (1.000-1.030) Urine Protein (Negative) Urine Glucose (UA) (Negative) Urine Ketones (Negative) Urine Blood (Negative) Urine Nitrite (Negative) Urine Bilirubin (Negative) Urine Urobilinogen (Negative) Ur Leukocyte Esterase (Negative) Urine WBC (Auto) (0-5) /hpf Urine RBC (Auto) (0-4) /hpf U Hyaline Cast (Auto) (0-5) /lpf U Epithel Cells (Auto) (0-5) /lpf Urine Bacteria (Auto) (Negative) Influenza Type A (PCR) Neg for Influ A (Neg) Influenza Type B (PCR) Neg for Influ B (Neg) 09/19/19 09/19/19 Range/Units 14:40 17:10 WBC (4.8-10.8) K/uL RBC (4.2-5.4) M/uL Hgb (12.0-16.0) g/dL Hct (37-47) % MCV (80-100) fL MCH (25-34) pg MCHC (32-36) g/dL RDW Std Deviation (36.4-46.3) fL RDW Coeff of Niya (11.5-14.5) % Plt Count (130-400) K/uL MPV (7.4-10.4) fL Immature Gran % (Auto) % Neut % (Auto) % Lymph % (Auto) % [place] % (Auto) % Eos % (Auto) % Baso % (Auto) % Immature Gran # (Auto) (0.00-0.02) K/uL Neut # (Auto) (1.4-6.5) K/uL Lymph # (Auto) (1.2-3.4) K/uL [place] # (Auto) (0.11-0.59) K/uL Eos # (Auto) (0-0.5) K/uL Baso # (Auto) (0-0.2) K/uL PT INR APTT PTT Ratio Sodium (136-145) mmol/L Potassium (3.5-5.1) mmol/L Chloride (98-107) mmol/L Carbon Dioxide (21-32) mmol/L Anion Gap (3-11) BUN (7-18) mg/dl Creatinine (0.6-1.2) mg/dl POC Creatinine 0.7 (0.6-1.3) mg/dl Est Cr Clr Drug Dosing ml/min Est GFR ( Amer) Est GFR (Non-Af Amer) BUN/Creatinine Ratio (10-20) Glucose (70-99) mg/dl Lactate (0.4-2.0) mmol/L Calcium (8.5-10.1) mg/dl Phosphorus (2.5-4.9) mg/dl Magnesium (1.8-2.4) mg/dl Total Bilirubin (0.2-1) mg/dl AST (15-37) U/L ALT (12-78) U/L Alkaline Phosphatase (45-117) U/L Troponin I (0-0.045) ng/ml Total Protein (6.4-8.2) gm/dl Albumin (3.4-5.0) gm/dl Globulin (2.5-4.0) gm/dl Albumin/Globulin Ratio (0.9-2) Procalcitonin (0-0.5) ng/ml HCG, Qual (Negative) Urine Color Yellow Urine Appearance Clear (Clear) Urine pH 5.0 (4.5-7.5) Ur Specific [place] > 1.045 H (1.000-1.030) Urine Protein Negative (Negative) Urine Glucose (UA) Negative (Negative) Urine Ketones Negative (Negative) Urine Blood 1+ H (Negative) Urine Nitrite Negative (Negative) Urine Bilirubin Negative (Negative) Urine Urobilinogen Negative (Negative) Ur Leukocyte Esterase Negative (Negative) Urine WBC (Auto) 1-5 (0-5) /hpf Urine RBC (Auto) 0-4 (0-4) /hpf U Hyaline Cast (Auto) 1-5 (0-5) /lpf U Epithel Cells (Auto) 20-30 H (0-5) /lpf Urine Bacteria (Auto) 2+ H (Negative) Influenza Type A (PCR) (Neg) Influenza Type B (PCR) (Neg) Diagnostic Findings XR chest 1V portable HISTORY: Respiratory failure. COMPARISON: Chest 09/12/2018. FINDINGS: The lungs are clear. Cardiac silhouette is normal in size. No pleural effusions. No pneumothorax. IMPRESSION: No acute process. ACT 112: Negative or not required by law. Electronically signed by: Cesar Downs M.D. 09/19/2019 2:15 PM Dictated: 09/19/191413 Transcribed: 09/19/191413 CT angio chest PE protocol CT DOSE: 590.46 mGy.cm HISTORY: Dyspnea PE sob TECHNIQUE: Multiaxial CT images of the chest were performed following the intravenous administration of contrast to evaluate the pulmonary arteries. Maximal intensity projection images were also obtained. A dose lowering technique was utilized adhering to the principles of ALARA. COMPARISON STUDY: None. FINDINGS: There is a normal caliber thoracic aorta with no evidence for dissection. There is no evidence for pulmonary embolus. No pleural effusions. No pneumothorax. The liver and spleen are unremarkable. No mediastinal or hilar lymphadenopathy. The central airways are patent. The lungs are clear. IMPRESSION: No evidence for pulmonary embolus. The lungs are clear. ACT 112: Negative or not required by law. The above report was generated using voice recognition software. It may contain grammatical, syntax or spelling errors. Electronically signed by: Camron Cohen M.D. 09/19/2019 3:04 PM Dictated: 09/19/19 1502 Transcribed: 09/19/19 1502 ECG Additional Comments: DICTATED BY: Jeff Márquez MD Test Reason : Blood Pressure : / mmHG Vent. Rate : 125 BPM Atrial Rate : 125 BPM P-R Int : 166 ms QRS Dur : 074 ms QT Int : 296 ms P-R-T Axes : 071 046 060 degrees QTc Int : 427 ms Poor data quality, interpretation may be adversely affected Sinus tachycardia Low voltage QRS Abnormal ECG No previous ECGs available Confirmed by Jeff Márquez ([id number]) on 09/19/2019 6:20:36 PM Referred By: REFERRED SELF Confirmed By:Dirk Márquez Code Status & VTE Plan Code Status Full code VTE Prophylaxis Plan VTE Prophylaxis will be ordered: Yes PG Care Time/CCT Total # of Minutes Spent Total Time Spent with Patient: Total time spent is greater than 50% in coordination of care (as documented) at patient's floor/unit and/or counseling patient: Coding Level of Care Code 74424 Initial Inpt Care Lvl 3 Diagnoses Acute respiratory failure with hypoxia and hypercarbia J96.01; J96.02 Hyperglycemia R73.9 Tachycardia R00.0
[2019-09-19] MEDS: BUTT PASTE (ZINC OXIDE 16%) 171 APPLN/57 GM JAR EXT SCH (21:32)
[2019-09-20] MEDS: ALBUT/IPRATROP 3MG/0.5MG NEB 3 ML VIAL NEB SCH ×3 (03:38→11:00)
[2019-09-20 07:19] LABS: Basophils # (auto) 0.01 K/uL (0-0.2); Basophils % (auto) 0.1 %; Hemoglobin 13.8 g/dL (12.0-16.0); Immature Granulocytes # (auto) 0.07 K/uL (0.00-0.02); Immature Granulocytes % (auto) 0.4 %; Lymphocytes # (auto) 1.48 K/uL (1.2-3.4); Lymphocytes % (auto) 7.7 %; Mean Corpuscular Hemoglobin 30.5 pg (25-34); Mean Corpuscular Hgb Conc 32.9 g/dL (32-36); Mean Corpuscular Volume 92.9 fL (80-100); Mean Platelet Volume 10.6 fL (7.4-10.4); Monocytes # (auto) 0.92 K/uL (0.11-0.59); Monocytes % (auto) 4.8 %; Neutrophils # (auto) 16.64 K/uL (1.4-6.5); Platelet Count 274 K/uL (130-400); RDW Coefficient of Variation 13.4 % (11.5-14.5); Red Blood Count 4.52 M/uL (4.2-5.4); White Blood Count 19.12 K/uL (4.8-10.8)
[2019-09-20 08:05] LABS: BUN Creatinine Ratio 24.5 (10-20); Calcium 8.9 mg/dl (8.5-10.1); Creatinine Clr Calc Pharmacy 127.4 ml/min; Est GFR (African American) 126.6; Est GFR (Non-African American) 109.3; Potassium 4.7 mmol/L (3.5-5.1)
[2019-09-20] MEDS: BUTT PASTE (ZINC OXIDE 16%) 171 APPLN/57 GM JAR EXT SCH ×3 (09:13→19:36)
[2019-09-20] MEDS: predniSONE 20 MG TAB PO SCH (09:13)
[2019-09-20] MEDS: ACETAMINOPHEN 325 MG TAB PO PRN (09:14)
[2019-09-20] MEDS ORDERED: AZITHROMYCIN 250 MG TAB PO ONE (11:28)
[2019-09-20] MEDS: UMECLIDINIUM BROMIDE 62.5MCG/BLISTER 7 PUFFS/INHALER INH SCH (12:12)
--- NOTE | 2019-09-20 16:07 | Hospitalist Progress Note ---
Date of Service September 20, 2019 Assessment & Plan (1) Acute respiratory failure with hypoxia and hypercarbia: 49-year-old female with no previously diagnosed lung disease, active smoker presenting with acute hypoxic/hypercarbic respiratory failure requiring rescue BiPAP. Acute respiratory failure with hypoxia and hypercarbia: - likely 2/2 reactive airway disease/COPD, no formal diagnosis of this at this time. - sats maintained >90% while on RA, continue supplemental O2 as needed - Incruse daily; DuoNebs every 4 hours as needed - Prednisone 40 mg p.o. daily - Azithromycin daily - Patient will need outpatient PFTs, and follow-up in Pulm clinic Tachycardia: - persistent sinus tachycardia; up to 140s while walking around unit with staff - ?if 2/2 hypoxia and medication effects from steroids and nebs; however, no improvement after trial of spacing off nebs - CTA with no evidence of PE. No evidence of infection/sepsis - Continue to monitor Diet: Regular DVT ppx: ambulation Code: Full (2) Tachycardia: Admission and Anticipated Discharge Date Admission Date: September 19, 2019 Subjective Patient feels much better this morning, was able to be converted to 2L NC early in the day with continued good sats and without feeling of shortness of breath, before ultimately being able to be converted to room air without subsequent difficulties. Review of Systems Review of Systems: All systems reviewed & are unremarkable except as noted in Subjective Physical Exam Constitutional: WD/WN, vitals as above Eyes: PERRL, conjunctivae normal, anicteric sclerae Respiratory: + cough; no labored breathing and no retractions Auscultation: + crackles and + wheezes; no rales Cardiovascular: Rate/Rhythm: regular rhythm and + tachycardic Heart Sounds: normal S1 and normal S2; no gallop, no murmur and no cardiac rub Vessels: no JVD Gastrointestinal (Abdomen): normal bowel sounds, soft, nontender, no hep atosplenomegaly Results & Data ([facility]) Vital Signs (Past 12 Hours) Vital Signs Temp Pulse Pulse Resp BP Pulse Ox 09/20/19 15:24 36.6 C 108 H 20 108/76 97 09/20/19 11:11 36.3 C L 112 H 19 112/69 94 09/20/19 11:01 112 H 16 98 09/20/19 08:03 37.3 C 134 H 19 109/78 92 09/20/19 08:00 102 H 09/20/19 07:27 106 H 16 97 09/20/19 04:32 36.6 C 106 H 20 114/77 97 Laboratory Results 09/20/19 09/20/19 09/20/19 Range/Units 11:18 07:34 07:01 WBC (4.8-10.8) K/uL RBC (4.2-5.4) M/uL Hgb (12.0-16.0) g/dL Hct (37-47) % MCV (80-100) fL MCH (25-34) pg MCHC (32-36) g/dL RDW Std Deviation (36.4-46.3) fL RDW Coeff of Niya (11.5-14.5) % Plt Count (130-400) K/uL MPV (7.4-10.4) fL Immature Gran % (Auto) % Neut % (Auto) % Lymph % (Auto) % Pickett % (Auto) % Eos % (Auto) % Baso % (Auto) % Immature Gran # (Auto) (0.00-0.02) K/uL Neut # (Auto) (1.4-6.5) K/uL Lymph # (Auto) (1.2-3.4) K/uL Pickett # (Auto) (0.11-0.59) K/uL Eos # (Auto) (0-0.5) K/uL Baso # (Auto) (0-0.2) K/uL Sodium (136-145) mmol/L Potassium (3.5-5.1) mmol/L Chloride (98-107) mmol/L Carbon Dioxide (21-32) mmol/L Anion Gap (3-11) BUN (7-18) mg/dl Creatinine (0.6-1.2) mg/dl Est Cr Clr Drug Dosing ml/min Est GFR ( Amer) Est GFR (Non-Af Amer) BUN/Creatinine Ratio (10-20) Glucose (70-99) mg/dl POC Glucose 117 H 113 H (70-99) mg/dl Estimat Average Glucose Pending Hemoglobin A1c Pending Calcium (8.5-10.1) mg/dl Phosphorus (2.5-4.9) mg/dl Urine Color Urine Appearance (Clear) Urine pH (4.5-7.5) Ur Specific [place] (1.000-1.030) Urine Protein (Negative) Urine Glucose (UA) (Negative) Urine Ketones (Negative) Urine Blood (Negative) Urine Nitrite (Negative) Urine Bilirubin (Negative) Urine Urobilinogen (Negative) Ur Leukocyte Esterase (Negative) Urine WBC (Auto) (0-5) /hpf Urine RBC (Auto) (0-4) /hpf U Hyaline Cast (Auto) (0-5) /lpf U Epithel Cells (Auto) (0-5) /lpf Urine Bacteria (Auto) (Negative) 09/20/19 09/20/19 09/19/19 Range/Units 07:01 07:01 20:41 WBC 19.12 H (4.8-10.8) K/uL RBC 4.52 (4.2-5.4) M/uL Hgb 13.8 (12.0-16.0) g/dL Hct 42.0 (37-47) % MCV 92.9 (80-100) fL MCH 30.5 (25-34) pg MCHC 32.9 (32-36) g/dL RDW Std Deviation 46.0 (36.4-46.3) fL RDW Coeff of Niya 13.4 (11.5-14.5) % Plt Count 274 (130-400) K/uL MPV 10.6 H (7.4-10.4) fL Immature Gran % (Auto) 0.4 % Neut % (Auto) 87.0 % Lymph % (Auto) 7.7 % Pickett % (Auto) 4.8 % Eos % (Auto) 0.0 % Baso % (Auto) 0.1 % Immature Gran # (Auto) 0.07 H (0.00-0.02) K/uL Neut # (Auto) 16.64 H (1.4-6.5) K/uL Lymph # (Auto) 1.48 (1.2-3.4) K/uL Pickett # (Auto) 0.92 H (0.11-0.59) K/uL Eos # (Auto) 0.00 (0-0.5) K/uL Baso # (Auto) 0.01 (0-0.2) K/uL Sodium 140 (136-145) mmol/L Potassium 4.7 D (3.5-5.1) mmol/L Chloride 111 H (98-107) mmol/L Carbon Dioxide 25 (21-32) mmol/L Anion Gap 4.0 (3-11) BUN 13 (7-18) mg/dl Creatinine 0.54 L D (0.6-1.2) mg/dl Est Cr Clr Drug Dosing 127.4 ml/min Est GFR ( Amer) 126.6 Est GFR (Non-Af Amer) 109.3 BUN/Creatinine Ratio 24.5 H (10-20) Glucose 105 H (70-99) mg/dl POC Glucose 143 H (70-99) mg/dl Estimat Average Glucose Hemoglobin A1c Calcium 8.9 (8.5-10.1) mg/dl Phosphorus (2.5-4.9) mg/dl Urine Color Urine Appearance (Clear) Urine pH (4.5-7.5) Ur Specific [place] (1.000-1.030) Urine Protein (Negative) Urine Glucose (UA) (Negative) Urine Ketones (Negative) Urine Blood (Negative) Urine Nitrite (Negative) Urine Bilirubin (Negative) Urine Urobilinogen (Negative) Ur Leukocyte Esterase (Negative) Urine WBC (Auto) (0-5) /hpf Urine RBC (Auto) (0-4) /hpf U Hyaline Cast (Auto) (0-5) /lpf U Epithel Cells (Auto) (0-5) /lpf Urine Bacteria (Auto) (Negative) 09/19/19 09/19/19 Range/Units 17:10 13:50 WBC (4.8-10.8) K/uL RBC (4.2-5.4) M/uL Hgb (12.0-16.0) g/dL Hct (37-47) % MCV (80-100) fL MCH (25-34) pg MCHC (32-36) g/dL RDW Std Deviation (36.4-46.3) fL RDW Coeff of Niya (11.5-14.5) % Plt Count (130-400) K/uL MPV (7.4-10.4) fL Immature Gran % (Auto) % Neut % (Auto) % Lymph % (Auto) % Pickett % (Auto) % Eos % (Auto) % Baso % (Auto) % Immature Gran # (Auto) (0.00-0.02) K/uL Neut # (Auto) (1.4-6.5) K/uL Lymph # (Auto) (1.2-3.4) K/uL Pickett # (Auto) (0.11-0.59) K/uL Eos # (Auto) (0-0.5) K/uL Baso # (Auto) (0-0.2) K/uL Sodium (136-145) mmol/L Potassium (3.5-5.1) mmol/L Chloride (98-107) mmol/L Carbon Dioxide (21-32) mmol/L Anion Gap (3-11) BUN (7-18) mg/dl Creatinine (0.6-1.2) mg/dl Est Cr Clr Drug Dosing ml/min Est GFR ( Amer) Est GFR (Non-Af Amer) BUN/Creatinine Ratio (10-20) Glucose (70-99) mg/dl POC Glucose (70-99) mg/dl Estimat Average Glucose Hemoglobin A1c Calcium (8.5-10.1) mg/dl Phosphorus 6.7 H (2.5-4.9) mg/dl Urine Color Yellow Urine Appearance Clear (Clear) Urine pH 5.0 (4.5-7.5) Ur Specific [place] > 1.045 H (1.000-1.030) Urine Protein Negative (Negative) Urine Glucose (UA) Negative (Negative) Urine Ketones Negative (Negative) Urine Blood 1+ H (Negative) Urine Nitrite Negative (Negative) Urine Bilirubin Negative (Negative) Urine Urobilinogen Negative (Negative) Ur Leukocyte Esterase Negative (Negative) Urine WBC (Auto) 1-5 (0-5) /hpf Urine RBC (Auto) 0-4 (0-4) /hpf U Hyaline Cast (Auto) 1-5 (0-5) /lpf U Epithel Cells (Auto) 20-30 H (0-5) /lpf Urine Bacteria (Auto) 2+ H (Negative) Medications Administered Current Inpatient Medications Acetaminophen (Tylenol) 650 mg PO Q4H PRN PRN Reason: Pain or Fever Stop: 10/19/19 17:25 Last Admin: 09/20/19 09:14 Dose: 650 mg Documented by: Albuterol (Ventolin 0.5% 2.5mg/0.5ml) 2.5 mg NEB Q4H PRN PRN Reason: SOB/Wheeze Stop: 10/19/19 17:25 Dextrose (Dextrose 50%) 25 - 50 ml IV UD PRN; Protocol PRN Reason: Hypoglycemia Protocol Stop: 10/19/19 17:25 Glucagon (Glucagen) 1 mg SQ UD PRN; Protocol PRN Reason: Hypoglycemia Protocol Stop: 10/19/19 17:25 Glucose (Dex4 Glucose) 4 - 8 tabs PO UD PRN; Protocol PRN Reason: Hypoglycemia Protocol Stop: 10/19/19 17:25 Glucose (Glucose 40%) 15 - 30 gm PO UD PRN; Protocol PRN Reason: Hypoglycemia Protocol Stop: 10/19/19 17:25 Ioversol (Optiray 320 125ml) 118 ml IV ONCE PRN PRN Reason: Interaction Checking Stop: 09/23/19 14:53 Last Admin: 09/19/19 14:54 Dose: 118 ml Documented by: Miscellaneous (Carbohydrates For Hypoglycemia) 15 - 30 gm PO UD PRN PRN Reason: Hypoglycemia Protocol Stop: 10/19/19 17:25 Petrolatum (Butt Paste) 1 appln EXT TID [facility] Stop: 10/19/19 20:59 Last Admin: 09/20/19 14:26 Dose: 1 appln Documented by: Prednisone (Prednisone) 40 mg PO DAILY [facility] Stop: 10/20/19 08:59 Last Admin: 09/20/19 09:13 Dose: 40 mg Documented by: Umeclidinium Harmony (Incruse Ellipta) 1 puffs INH DAILY [facility] Stop: 10/20/19 11:29 Last Admin: 09/20/19 12:12 Dose: 1 puffs Documented by: Resident Activity Tracking Resident Involvement: Resident Care Provided Care Provided: Adult Hospital Medicine
[2019-09-20] MEDS: ALBUTEROL 0.5% NEB SOLN 2.5 MG/0.5 ML VIAL NEB PRN (19:06)
[2019-09-21] MEDS: ALBUTEROL 0.5% NEB SOLN 2.5 MG/0.5 ML VIAL NEB PRN ×4 (02:16→19:26)
[2019-09-21 06:54] LABS: Estimated Average Glucose 111 mg/dl; Hemoglobin A1C 5.5 % (4.5-5.6)
[2019-09-21 07:45] LABS: Basophils # (auto) 0.04 K/uL (0-0.2); Basophils % (auto) 0.2 %; Eosinophils % (auto) 1.1 %; Hematocrit (blood only) 43.7 % (37-47); Hemoglobin 14.2 g/dL (12.0-16.0); Immature Granulocytes # (auto) 0.05 K/uL (0.00-0.02); Immature Granulocytes % (auto) 0.3 %; Lymphocytes # (auto) 4.53 K/uL (1.2-3.4); Lymphocytes % (auto) 25.3 %; Mean Corpuscular Hemoglobin 30.7 pg (25-34); Mean Corpuscular Hgb Conc 32.5 g/dL (32-36); Mean Corpuscular Volume 94.6 fL (80-100); Mean Platelet Volume 10.6 fL (7.4-10.4); Monocytes # (auto) 0.85 K/uL (0.11-0.59); Monocytes % (auto) 4.7 %; Neutrophils # (auto) 12.25 K/uL (1.4-6.5); Neutrophils % (auto) 68.4 %; Platelet Count 311 K/uL (130-400); RDW Coefficient of Variation 14.1 % (11.5-14.5); RDW Standard Deviation 48.3 fL (36.4-46.3); Red Blood Count 4.62 M/uL (4.2-5.4); White Blood Count 17.92 K/uL (4.8-10.8)
[2019-09-21 08:25] LABS: BUN Creatinine Ratio 21.4 (10-20); Creatinine Clr Calc Pharmacy 105.7 ml/min; Est GFR (African American) 119.1; Est GFR (Non-African American) 102.8; Potassium 3.6 mmol/L (3.5-5.1)
[2019-09-21 08:26] LABS: Calcium 8.8 mg/dl (8.5-10.1)
[2019-09-21 09:40] LABS: iSTAT Hematocrit 41 % (37-47); iSTAT Hemoglobin 13.9 g/dl (12.0-16.0); iSTAT Potassium 3.8 mmol/L (3.3-5.0); iSTAT Sodium 140 mmol/L (135-144)
[2019-09-21 09:41] LABS: iSTAT Arterial Blood Gas HCO3 24 meg/L (19-24); iSTAT Arterial Blood Gas pCO2 50 mmHg (35-46); iSTAT Arterial Blood Gas pH 7.29 (7.35-7.45); iSTAT Arterial Blood Gas pO2 189 mmHg (80-95); iSTAT Carbon Dioxide 26 mmol/L (24-31); iSTAT Sample Type Arterial
[2019-09-21 09:42] LABS: iSTAT Arterial Blood Gas pCO2 75 mmHg (35-46); iSTAT Arterial Blood Gas pH 7.19 (7.35-7.45); iSTAT Hematocrit 45 % (37-47); iSTAT Hemoglobin 15.3 g/dl (12.0-16.0); iSTAT Potassium 4.4 mmol/L (3.3-5.0); iSTAT Sodium 142 mmol/L (135-144)
[2019-09-21 09:44] LABS: iSTAT Arterial Blood Gas HCO3 28 meg/L (19-24); iSTAT Arterial Blood Gas pO2 58 mmHg (80-95); iSTAT Carbon Dioxide 30 mmol/L (24-31); iSTAT Sample Type VENOUS
[2019-09-21] MEDS: UMECLIDINIUM BROMIDE 62.5MCG/BLISTER 7 PUFFS/INHALER INH SCH (09:59)
--- NOTE | 2019-09-21 10:33 | Electrocardiogram Report ---
Test Reason : Blood Pressure : / mmHG Vent. Rate : 109 BPM Atrial Rate : 109 BPM P-R Int : 156 ms QRS Dur : 078 ms QT Int : 344 ms P-R-T Axes : 076 029 123 degrees QTc Int : 463 ms Sinus tachycardia Nonspecific T wave abnormality Abnormal ECG When compared with ECG of 19-SEP-2019 14:08, Nonspecific T wave abnormality now evident in Inferior leads T wave inversion now evident in Anterior leads Confirmed by Jeff Márquez ([id number]) on 09/21/2019 10:33:33 AM Referred By: REFERRED SELF Confirmed By:Dirk Márquez
--- NOTE | 2019-09-21 10:54 | Hospitalist Progress Note ---
Date of Service September 21, 2019 Assessment & Plan (1) Acute respiratory failure with hypoxia and hypercarbia: 49-year-old female with hx of Asthma admitted to the hospital after acute respiratory failure likely secondary to bronchospasm from prolonged coughing episode. 1) Acute respiratory failure with hypoxia and hypercarbia: - likely secondary to bronchospasm/reactive airway disease - satting well at rest, maintained 94% walking on the floor on room air - Incruse daily; DuoNebs every 4 hours as needed, flutter valve Q4H - Prednisone 40 mg p.o. daily, will step down on discharge - No hx of PFTs, patient will need outpatient PFTs, and follow-up in Pulm cli nydia. 2) Tachycardia: improving - no longer tachycardic at rest however still tachycardic in the 110's while walking around the halls with staff - CTA chest negative for PE on admission - WBC of 14 on admission, up to 19 and down to 17 today. Afebrile during hospital stay. Possibly secondary to steroids and neb treatments. Will continue to monitor. - encourage PO fluids to maintain hydration Diet: Regular DVT ppx: ambulation Code: Full Dispo: tele, home at discharge (2) Tachycardia: Admission and Anticipated Discharge Date Admission Date: September 19, 2019 Supervising Physician Co-Signing Physician Notes Attending attestation Pt seen and examined in concert with Dr. Urbina. In agreement with the documented findings as noted in the resident documentation with any exceptions or additions as noted here. Gradually improving shortness of breath which still worsens with simple ambulation. Improvement with fluttervalve and IS, as well as nebs. On examination, S1/S2 nl RRR no MCG. very mild wheezing with decreased BS throughout. Abd NT/ND BS+ve Acute hypoxic respiratory failure w/ hypercarbia - improving saturations. Continue pred, taper on discharge. Duoneb q4P. O2 per protocol Tachycardia - continues to improve w/ improving O2 sats. Monitor Else see resident documentation as noted. Subjective 49 yo F with PMH asthma here for acute respiratory failure with hypoxia and hypercarbia. Feeling improved today with use of nebulizers and flutter valve, continues to cough up mucus. Denies shortness of breath when getting up to use the restroom as well as at rest. No chest pain, palpitations. Review of Systems Constitutional: no fever, no chills, no body aches and no fatigue Respiratory: + cough; no dyspnea Cardiovascular: no chest pain, no dyspnea and no edema Gastrointestinal: no abdominal pain, no nausea, no vomiting, no constipation and no diarrhea/loose stools Genitourinary: no dysuria Physical Exam Constitutional: cooperative; no acute distress and not ill appearing Neck: normal visual inspection Respiratory: normal respiratory effort and able to speak in complete sentences; no respiratory distress, no labored breathing, no retractions, no cough and no audible wheezes Auscultation: lungs clear to auscultation bilaterally; no crackles, no rales, no rhonchi and no wheezes Cardiovascular: Rate/Rhythm: regular rate and regular rhythm Heart Sounds: normal S1 and normal S2; no gallop, no murmur and no cardiac rub Vessels: posterior tibial pulses present Extremities: no pedal edema and no edema Gastrointestinal (Abdomen): Inspection/Auscultation: abdomen normal to inspection and normal bowel sounds; abdomen not distended Percussion/Palpation: abdomen soft; abdomen nontender, no guarding, abdomen not rigid and no abdominal mass Results & Data ([facility]) Vital Signs (Past 12 Hours) Vital Signs Temp Pulse Pulse Resp BP Pulse Ox 09/21/19 10:50 36.5 C 94 H 19 114/77 94 09/21/19 07:57 84 09/21/19 07:53 36.8 C 103 H 19 107/68 91 09/21/19 07:19 110 H 18 87 L 09/21/19 04:16 36.4 C L 99 H 17 106/72 95 09/21/19 02:16 96 H 18 90 09/20/19 23:39 36.5 C 89 18 95/62 L 93 09/21/19 09/21/19 09/21/19 Range/Units 11:26 07:24 07:12 WBC (4.8-10.8) K/uL RBC (4.2-5.4) M/uL Hgb (12.0-16.0) g/dL POC Hgb (12.0-16.0) g/dl Hct (37-47) % POC Hct (37-47) % MCV (80-100) fL MCH (25-34) pg MCHC (32-36) g/dL RDW Std Deviation (36.4-46.3) fL RDW Coeff of Niya (11.5-14.5) % Plt Count (130-400) K/uL MPV (7.4-10.4) fL Immature Gran % (Auto) % Neut % (Auto) % Lymph % (Auto) % [place] % (Auto) % Eos % (Auto) % Baso % (Auto) % Immature Gran # (Auto) (0.00-0.02) K/uL Neut # (Auto) (1.4-6.5) K/uL Lymph # (Auto) (1.2-3.4) K/uL [place]ent # (Auto) (0.11-0.59) K/uL Eos # (Auto) (0-0.5) K/uL Baso # (Auto) (0-0.2) K/uL Blood Smear Review Specimen Type POC pH (7.35-7.45) POC pCO2 (35-46) mmHg POC pO2 (80-95) mmHg POC HCO3 (19-24) sawyer/L POC Total CO2 (24-31) mmol/L POC Base Excess (-9-1.8) sawyer/L POC O2 Saturation POC Sodium (135-144) mmol/L Sodium 141 (136-145) mmol/L POC Potassium (3.3-5.0) mmol/L Potassium 3.6 D (3.5-5.1) mmol/L Chloride 108 H (98-107) mmol/L Carbon Dioxide 27 (21-32) mmol/L Anion Gap 6.0 (3-11) BUN 14 (7-18) mg/dl Creatinine 0.65 (0.6-1.2) mg/dl Est Cr Clr Drug Dosing 105.7 ml/min Est GFR ( Amer) 119.1 Est GFR (Non-Af Amer) 102.8 BUN/Creatinine Ratio 21.4 H (10-20) Glucose 80 (70-99) mg/dl POC Glucose 82 90 (70-99) mg/dl Estimat Average Glucose mg/dl Hemoglobin A1c (4.5-5.6) % Calcium 8.8 (8.5-10.1) mg/dl 09/21/19 09/20/19 09/20/19 Range/Units 07:12 16:18 07:01 WBC 17.92 H (4.8-10.8) K/uL RBC 4.62 (4.2-5.4) M/uL Hgb 14.2 (12.0-16.0) g/dL POC Hgb (12.0-16.0) g/dl Hct 43.7 (37-47) % POC Hct (37-47) % MCV 94.6 (80-100) fL MCH 30.7 (25-34) pg MCHC 32.5 (32-36) g/dL RDW Std Deviation 48.3 H (36.4-46.3) fL RDW Coeff of Niya 14.1 (11.5-14.5) % Plt Count 311 (130-400) K/uL MPV 10.6 H (7.4-10.4) fL Immature Gran % (Auto) 0.3 % Neut % (Auto) 68.4 % Lymph % (Auto) 25.3 % [place] % (Auto) 4.7 % Eos % (Auto) 1.1 % Baso % (Auto) 0.2 % Immature Gran # (Auto) 0.05 H (0.00-0.02) K/uL Neut # (Auto) 12.25 H (1.4-6.5) K/uL Lymph # (Auto) 4.53 H (1.2-3.4) K/uL [place]ent # (Auto) 0.85 H (0.11-0.59) K/uL Eos # (Auto) 0.20 (0-0.5) K/uL Baso # (Auto) 0.04 (0-0.2) K/uL Blood Smear Review Specimen Type POC pH (7.35-7.45) POC pCO2 (35-46) mmHg POC pO2 (80-95) mmHg POC HCO3 (19-24) sawyer/L POC Total CO2 (24-31) mmol/L POC Base Excess (-9-1.8) sawyer/L POC O2 Saturation POC Sodium (135-144) mmol/L Sodium (136-145) mmol/L POC Potassium (3.3-5.0) mmol/L Potassium (3.5-5.1) mmol/L Chloride (98-107) mmol/L Carbon Dioxide (21-32) mmol/L Anion Gap (3-11) BUN (7-18) mg/dl Creatinine (0.6-1.2) mg/dl Est Cr Clr Drug Dosing ml/min Est GFR ( Amer) Est GFR (Non-Af Amer) BUN/Creatinine Ratio (10-20) Glucose (70-99) mg/dl POC Glucose 122 H (70-99) mg/dl Estimat Average Glucose 111 mg/dl Hemoglobin A1c 5.5 (4.5-5.6) % Calcium (8.5-10.1) mg/dl 09/19/19 09/19/19 09/19/19 Range/Units 16:24 14:20 13:50 WBC (4.8-10.8) K/uL RBC (4.2-5.4) M/uL Hgb (12.0-16.0) g/dL POC Hgb 13.9 15.3 (12.0-16.0) g/dl Hct (37-47) % POC Hct 41 45 (37-47) % MCV (80-100) fL MCH (25-34) pg MCHC (32-36) g/dL RDW Std Deviation (36.4-46.3) fL RDW Coeff of Niya (11.5-14.5) % Plt Count (130-400) K/uL MPV (7.4-10.4) fL Immature Gran % (Auto) % Neut % (Auto) % Lymph % (Auto) % [place] % (Auto) % Eos % (Auto) % Baso % (Auto) % Immature Gran # (Auto) (0.00-0.02) K/uL Neut # (Auto) (1.4-6.5) K/uL Lymph # (Auto) (1.2-3.4) K/uL S[place]ent # (Auto) (0.11-0.59) K/uL Eos # (Auto) (0-0.5) K/uL Baso # (Auto) (0-0.2) K/uL Blood Smear Review Specimen Type Arterial VENOUS POC pH 7.29 L 7.19 L* (7.35-7.45) POC pCO2 50 H 75 H (35-46) mmHg POC pO2 189 H 58 L (80-95) mmHg POC HCO3 24 28 H (19-24) sawyer/L POC Total CO2 26 30 (24-31) mmol/L POC Base Excess -2.0 0.0 (-9-1.8) sawyer/L POC O2 Saturation 100 POC Sodium 140 142 (135-144) mmol/L Sodium (136-145) mmol/L POC Potassium 3.8 4.4 (3.3-5.0) mmol/L Potassium (3.5-5.1) mmol/L Chloride (98-107) mmol/L Carbon Dioxide (21-32) mmol/L Anion Gap (3-11) BUN (7-18) mg/dl Creatinine (0.6-1.2) mg/dl Est Cr Clr Drug Dosing ml/min Est GFR ( Amer) Est GFR (Non-Af Amer) BUN/Creatinine Ratio (10-20) Glucose (70-99) mg/dl POC Glucose (70-99) mg/dl Estimat Average Glucose mg/dl Hemoglobin A1c (4.5-5.6) % Calcium (8.5-10.1) mg/dl Resident Activity Tracking Resident Involvement: Resident Care Provided Care Provided: Adult Hospital Medicine
[2019-09-21] MEDS: predniSONE 20 MG TAB PO SCH (11:26)
[2019-09-21] MEDS: BUTT PASTE (ZINC OXIDE 16%) 171 APPLN/57 GM JAR EXT SCH ×3 (11:27→20:17)
[2019-09-22] MEDS: UMECLIDINIUM BROMIDE 62.5MCG/BLISTER 7 PUFFS/INHALER INH SCH (07:47)
[2019-09-22] MEDS: predniSONE 20 MG TAB PO SCH (07:47)
[2019-09-22] MEDS: BUTT PASTE (ZINC OXIDE 16%) 171 APPLN/57 GM JAR EXT SCH ×2 (07:48→14:52)
[2019-09-22 14:36] LABS: Basophils # (auto) 0.02 K/uL (0-0.2); Basophils % (auto) 0.1 %; Eosinophils # (auto) 0.02 K/uL (0-0.5); Eosinophils % (auto) 0.1 %; Hematocrit (blood only) 45.5 % (37-47); Hemoglobin 14.8 g/dL (12.0-16.0); Immature Granulocytes # (auto) 0.07 K/uL (0.00-0.02); Immature Granulocytes % (auto) 0.5 %; Lymphocytes # (auto) 1.35 K/uL (1.2-3.4); Lymphocytes % (auto) 9.2 %; Mean Corpuscular Hemoglobin 30.6 pg (25-34); Mean Corpuscular Hgb Conc 32.5 g/dL (32-36); Mean Platelet Volume 10.4 fL (7.4-10.4); Monocytes % (auto) 2.7 %; Neutrophils # (auto) 12.79 K/uL (1.4-6.5); Neutrophils % (auto) 87.4 %; Platelet Count 319 K/uL (130-400); RDW Coefficient of Variation 13.7 % (11.5-14.5); RDW Standard Deviation 47.1 fL (36.4-46.3); Red Blood Count 4.84 M/uL (4.2-5.4); White Blood Count 14.65 K/uL (4.8-10.8)
--- NOTE | 2019-09-22 15:21 | Discharge Summary ---
Date of Service September 22, 2019 Admission HPI Per Admitting Provider Nabila Lozano is a 49-year-old female with no significant past medical history, no previously diagnosed lung disease presenting with acute hypoxic/hypercarbic respiratory failure. She reports being ill for the last couple of months with cough productive for phlegm, shortness of breath and occasional chest tightness. Patient is employed at [employer]. 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 She reportedly turned perez and became unresponsive at work. Saturations 57%, heart rate = 124. She was placed on 4 L by O2 concentrator by colleagues and 911 was called. Patient was administered 3 nebulized treatments, 2 g of magnesium and Solu-Medrol in the field. On arrival to the ER she was tachycardic at 128 bpm, tachypneic at 39 breaths/min, saturating 99% on 15 L nonrebreather. She was placed on BiPAP for increased work of breathing, settings 15/5, 50%. Saturations remained stable. ER course: Albuterol, BiPAP Admission Exam Per Admitting Provider Physical Exam: General: patient resting comfortably, NAD, non-toxic in appearance, AA&O x 4, BiPAP in place Skin: warm, dry, intact, no rashes or lesions HEENT: NC/AT, PERRL, EOMI, anicteric sclera, conjunctiva without injection, external ear normal to inspection and nontender, nares patent, moist mucus membranes, dentition intact, no oropharyngeal lesions, neck supple, trachea midline, no LAD, no thyromegaly, no JVD Heart: +S1/S2, regular, tachycardic, no m/r/g Lungs: Diminished breath sounds bilaterally, no rales/rhonchi, mild diffuse end expiratory wheezing Abd: +BS, soft, NT/ND, no masses/organomegaly/ascites Ext: warm, 2+ pulses in UE/LE bilaterally, no clubbing/cyanosis or edema Neuro: nonfocal, patient AA&O x 4, speech intact, no facial droop, moving all extremities on command with equal strength 5/5 Principal Diagnosis Asthma Exacerbation Discharge Exam Constitutional cooperative; no acute distress and not ill appearing Neck normal visual inspection Respiratory normal respiratory effort and able to speak in complete sentences; no respiratory distress, no labored breathing, no retractions, no cough and no audible wheezes Auscultation: + wheezes; no crackles, no rales and no rhonchi Cardiovascular Rate/Rhythm: regular rate and regular rhythm Heart Sounds: normal S1 and normal S2; no gallop, no murmur and no cardiac rub Vessels: posterior tibial pulses present Extremities: no pedal edema and no edema Gastrointestinal (Abdomen) Inspection/Auscultation: abdomen normal to inspection and normal bowel sounds; abdomen not distended Percussion/Palpation: abdomen soft; abdomen nontender, no guarding, abdomen not rigid and no abdominal mass Discharge Data Allergies Allergy/AdvReac Type Severity Reaction Status Date / Time Penicillins Allergy . Verified 09/19/19 15:16 Consultations 09/19/19 15:33 ED Decision to Admit Stat Ordered Studies 09/19/19 14:32 CT angio chest PE protocol Stat Hospital Course (1) Acute respiratory failure with hypoxia and hypercarbia: 49-year-old female with hx of Asthma admitted to the hospital after acute respiratory failure likely secondary to bronchospasm from prolonged coughing episode. 1) Acute respiratory failure with hypoxia and hypercarbia: - likely secondary to bronchospasm/reactive airway disease - satting well at rest, maintained 94% walking on the floor on room air - Incruse daily; DuoNebs every 4 hours as needed, flutter valve Q4H - Prednisone 40 mg p.o. daily, will step down on discharge - No hx of PFTs, patient will need outpatient PFTs, and follow-up in Pulm clinic. Total Time Total Time Spent Total Time Spent (In Minutes): Discharge Plan Discharge Items Patient Disposition: Home - Self-Care Reason For Visit: HYPOXIC, HYPERCARBIC RESPIRATORY FAILURE Discharge Diagnosis: Hypoxic, Hypercarbic Respiratory Failure Activity: Per Instructions section Non-emergency contact: Primary Care Provider and Credit Portfolio Manager Call non-emergency contact if: you have any medication questions, your symptoms worsen and you have a fever Follow-up/Referrals: Astrid Larkin PA-C [Nurse Practitioner] - 09/25/19 1:15 pm (Please, follow up at [facility] [place] Office with Astrid Larkin PA-C on SaturdaySeptember 25 at 1:15 pm. *The office is located next to [employer]. If you need to change this appointment, call the office at [phone].) Pablo Armenta MD [Physician] - 09/29/19 10:40 am (Please, follow up at [facility] Pulmonology Office with Dr. Armenta on SaturdaySeptember 28 at 11:00 am (arrive 10:40 am). *The office is located in [address] of [facility], next to this hospital. If you need to change this appointment, call the office at [phone].) Diet: Regular Addtl Attending Provider Instructions: You were brought in to the hospital for being unable to breath and a dropping oxygen saturation. During your stay it was unclear whether you were experiencing an underlying asthma flare up, COPD or a viral bronchitis that had acutely worsened. You improved with use of albuterol nebulizers and we advise that you use these at home if your breathing worsens. At home continue to use the Ellipta inhaler that you were sent home with, and use the albuterol inhaler if you experience sudden shortness of breath with walking, at rest, or that wakes you up during sleep. It is vital that you follow up with the pulmonology appointment listed below to ensure you have proper continuation of care. Follow up with your primary care provider in the next 2 weeks as well to discuss your hospital stay and what you can do moving forward to decrease your likelihood of having an asthma exacerbation or repeat event. If you experience sudden shortness of breath, a coughing spell that doesn't stop and doesn't allow you to breathe, or have to use the rescue inhaler multiple times without improvement, return to an emergency department or hospital to be re-evaluated. Pending Studies at Discharge: No Stand-Alone Forms: My [facility], Smoking Cessation Medications and DC Order Prescriptions: New Incruse Ellipta 62.5 mcg/actuation Blister With Device 1 puff inhalation DAILY 30 Days Qty: 1 RF: 0 prednisone 20 mg Tablet 40 mg PO DAILY 3 Days Qty: 6 RF: 0 Continued calcium carbonate [Calcium 600] 600 mg calcium (1,500 mg) Tablet 600 mg PO QAM RF: 0 ascorbic acid (vitamin C) [Vitamin C] 500 mg Tablet,Chewable 500 mg PO QAM RF: 0 cholecalciferol (vitamin D3) [Vitamin D3] 1,000 unit Capsule 1,000 unit PO QAM RF: 0 No Action vitamin B complex [B Complex-Vitamin B12] Tablet 1 tab PO DAILY RF: 0 albuterol sulfate 2.5 mg /3 mL (0.083 %) solution for nebulization 2.5 mg INH Q4H PRNRF: 0 Discharge Orders: Discharge Order (Routine); Ordered 09/22/19 Ordered By: Ilene Cerda/Other Patient Handouts: Infecs Common Prevent Admission Data Admit Date/Time: 09/19/19 16:14 Attending Provider: Gurwinder Esparza Admit Provider: Lexi Moreno Primary Care Provider: Slime Garcia. Other Providers: Lexi Moreno ; Ilene Urbina Other Interventions: Discharge Summary Assessment (RN) Last Done: 09/22/19 15:19 DC Date/Time DO NOT enter until pt leaves facility: 09/22/19 15:51 Supervising Physician Co-Signing Physician Notes Attending attestation Pt seen and examined in concert with Dr. Urbina. In agreement with the documented findings as noted in the resident documentation with any exceptions or additions as noted here. Shortness of breath continues to improve. Adherent to fluttervalve and IS, nebs PRN On examination, S1/S2 nl RRR no MCG. scattered faint wheezing with decreased BS throughout. Abd NT/ND BS+ve Acute hypoxic respiratory failure w/ hypercarbia - likely RAD/asthma without apparent bacterial infection. Short prednisone taper. Duoneb q4P. Follow up with pulmonology and primary care. Will need PFTs after recovery Tachycardia - resolved at rest and with mild activity. Else see resident documentation as noted. Time Spent: 25 minutes. Resident Activity Tracking Resident Involvement: Resident Care Provided Care Provided: Adult Hospital Medicine
== END 2019-09-22 15:51 | disposition home or self-care (01) | DRG 189 ==
LOC: ED 13:59 → 2S 16:14 → SUATTDRO 16:14 → 2S 16:33